=== PATIENT | male | born 1970 | race Caucasian/White ===

== ENCOUNTER → 2023-06-21 | Emergency (ER) | payer SELFPAY ==
[~2023-06-21] MED LIST: ENOXAPARIN 100 MG/ML SYR SQ ONE; NA CHLORIDE 0.9% 1,000 ML ONE
[2023-06-21 07:47] LABS: Absolute Lymphocytes (CBC) 2.1 K/uL (0.7-4.9); Hematocrit 41.1 % (39.6-49.0); Lymphocytes % 12.7 % (15.3-44.8); MCV 82.6 fL (80-100); MPV 8.3 fL (7.6-11.3); Platelets 412 thou/uL (152-406); RBC Red Blood Cell Count 4.97 M/uL (4.33-5.43)
[2023-06-21 08:04] LABS: Potassium 4.5 mEq/L (3.5-5.1)
[2023-06-21 08:12] LABS: Troponin High Sensitivity 294.7 pg/mL (<58.9)
--- NOTE | 2023-06-21 08:12 | RAD REPORT ---
EXAM DESCRIPTION: RAD - Chest Single View - 06/21/2023 8:07 am CLINICAL HISTORY: syncop Chest pain. COMPARISON: No comparisons FINDINGS: Portable technique limits examination quality. The lungs are grossly clear. The heart is normal in size. No displaced fractures. IMPRESSION: No acute intrathoracic process suspected.
--- NOTE | 2023-06-21 08:15 | RAD REPORT ---
EXAM DESCRIPTION: US - Extremity Venous Uni Ltd - 06/21/2023 8:09 am CLINICAL HISTORY: DVT eval Leg swelling and edema. COMPARISON: No comparisons FINDINGS: Right lower extremity venous system was interrogated with Doppler technique. Normal flow, compressibility and augmentation was noted. There is no DVT present. IMPRESSION: No evidence of right lower extremity deep venous thrombosis.
--- NOTE | 2023-06-21 08:47 | RAD REPORT ---
EXAM DESCRIPTION: CT - Chest For Pe Angio - 06/21/2023 8:37 am CLINICAL HISTORY: Chest pain. CHEST PAIN COMPARISON: No comparisons TECHNIQUE: CT angiogram of the pulmonary arteries was performed with MIP. All CT scans are performed using dose optimization technique as appropriate and may include automated exposure control or mA/KV adjustment according to patient size. FINDINGS: Large bilateral pulmonary emboli are present predominately in main and segmental branches. Moderate RV strain pattern. No acute aortic finding demonstrated. Mild linear subsegmental atelectasis is seen in both lung bases. The lungs are otherwise clear. No significant pericardial or pleural fluid. No concerning bony finding. IMPRESSION: Large, bilateral, main and segmental pulmonary emboli are present with significant RV st rain pattern. No acute lung findings.
[2023-06-21 09:01] LABS: Protime INR 1.3
--- NOTE | 2023-06-21 09:18 | ER ---
Nurse's Notes [facility] Name: Nicolas Guevara Age: 52 yrs Sex: Male : 1970 Arrival Date: 06/21/2023 Time: 06:53 Bed 14 Private MD: Diagnosis: Other pulmonary embolism with acute cor pulmonale Presentation: 06/21 07:01 Chief complaint: Patient states: right knee replacement on the 8th. yesterday new onset lg3 tachycardia and HTN that drops when i stand. im weak and dizzy. syncopal episode at registration. PT alert at time of triage. Coronavirus screen: Client denies travel out of the [place] in the last 14 days. At this time, the client does not indicate any symptoms associated with coronavirus-19. Ebola Screen: No symptoms or risks identified at this time. Initial Sepsis Screen: Does the patient meet any 2 criteria? No. Patient's initial sepsis screen is negative. Does the patient have a suspected source of infection? No. Patient's initial sepsis screen is negative. Risk Assessment: Do you want to hurt yourself or someone else? Patient reports no desire to harm self or others. Onset of symptoms was June 20, 2023. 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 Flu vaccine is not up to date. - Social history:: Smoking status: Patient denies any tobacco usage or history of. Patient uses alcohol, occasionally. Screenin:00 [facility] ED Fall Risk Assessment (Adult) History of falling in the last 3 months, rs5 including since admission No falls in past 3 months (0 pts) Confusion or Disorientation No (0 pts) Intoxicated or Sedated No (0 pts) Impaired Gait Yes (1 pt) Mobility Assist Device Used Yes (1 pt) Altered Elimination No (0 pt) Score/Fall Risk Level 0 - 2 = Low Risk Oriented to surroundings, Maintained a safe environment. Abuse screen: Denies threats or abuse. Nutritional screening: No deficits noted. Tuberculosis screening: No symptoms or risk factors identified. Assessment: 07:00 General: Appears in no apparent distress. uncomfortable, Behavior is calm, cooperative. rs5 Pain: Complains of pain in right knee Pain does not radiate. Pain currently is 2 out of 10 on a pain scale. Quality of pain is described as aching, Pain began Pt states "I had right knee surgery on 06/07/23. My knee aches every now and then but I don't really take any of the pain meds that the doctor prescribed" Is continuous, Aggravated by weight bearing. Neuro: Level of Consciousness is awake, alert, obeys commands, Oriented to person, place, time, situation. Cardiovascular: Heart tones S1 S2 present Patient's skin is warm and dry. Rhythm is sinus tachycardia. Respiratory: Airway is patent Respiratory effort is even, unlabored, Respiratory pattern is regular, symmetrical, Breath sounds are clear bilaterally. GI: Abdomen is round non-distended, Bowel sounds present X 4 quads. Abd is soft and non tender X 4 quads. Reports nausea when standing up from a sitting position intermittently. Pt denies nausea at this moment. : No signs and/or symptoms were reported regarding the genitourinary system. EENT: No signs and/or symptoms were reported regarding the EENT system. Derm: Skin is intact, Skin is pink, warm \\T\\ dry. 07:00 Musculoskeletal: Range of motion: limited in right knee. rs5 08:17 Reassessment: Patient and/or family updated on plan of care and expected duration. Pain rs5 level reassessed. Patient is alert, oriented x 3, equal unlabored respirations, skin warm/dry/pink. Patient denies pain at this time. 10:20 Reassessment: To bedside, transfer consent form signed by pt. rs5 10:20 Reassessment: Patient and/or family updated on plan of care and expected duration. Pain rs5 level reassessed. Patient is alert, oriented x 3, equal unlabored respirations, skin warm/dry/pink. 10:25 Reassessment: Report given to RN at [facility]. rs5 11:06 Reassessment: Patient and/or family updated on plan of care and expected duration. Pain rs5 level reassessed. Patient is alert, oriented x 3, equal unlabored respirations, skin warm/dry/pink. Patient denies pain at this time. Report given to EMS at bedside for transportation. Vital Signs: 07:01 BP 142 / 95; Pulse 103; Resp 19; Temp 97.5(O); Pulse Ox 98% on R/A; Weight 99.79 kg lg3 (R); Height 6 ft. 4 in. (R); 08:20 BP 119 / 84; Pulse 105; Resp 18; Pulse Ox 97% on R/A; rs5 09:40 BP 116 / 80; Pulse 99; Resp 18; Pulse Ox 98% on R/A; rs5 11:00 BP 120 / 87; Pulse 102; Resp 17; Pulse Ox 98% on R/A; rs5 07:01 Body Mass Index 26.78 (99.79 kg, 193.04 cm) lg3 ED Course: 06:55 Patient arrived in ED. im 07:00 Arm band placed on Patient placed in an exam room, on a stretcher. lg3 07:00 Patient has correct armband on for positive identification. Placed in gown. Bed in low rs5 position. Call light in reach. Side rails up X2. 07:05 Maximo Bender, RN is Primary Nurse. rs5 07:05 Triage completed. lg3 07:05 Phillip Mack MD is Attending Physician. ec2 07:15 Inserted saline lock: 20 gauge in right antecubital area, using aseptic technique. rs5 08:09 XRAY Chest (1 view) In Process Unspecified. EDMS 08:11 Extremity Venous Uni Ltd US In Process Unspecified. EDMS 08:12 Notified ED physician of a critical lab result(s). Troponin 294.7. ll1 08:38 CT Chest For PE Angio In Process Unspecified. EDMS 09:19 COVID-19 SARS RT PCR Sent. rs5 09:42 initiated transfer to [facility]. bd 11:04 pt accepted in transfer to [facility] ER by Dr aMrtines admin approval given by Kirk Callahan. 11:06 No provider procedures requiring assistance completed. Patient transferred, IV remains rs5 in place. Administered Medications: 07:40 Drug: NS 0.9% IV 1000 ml IV at 1 bolus Per protocol; 1000 mL bolus Route: IV; Rate: 1 rs5 bolus; Site: right antecubital; 08:00 Follow up: Response: No adverse reaction rs5 08:26 Drug: Enoxaparin Sub-Q 1 mg/kg Sub-Q once Route: Sub-Q; Site: left lower abdomen; rs5 09:00 Follow up: Response: No adverse reaction rs5 Medication: 11:06 VIS not applicable for this client. rs5 Outcome: 09:18 ER care complete, transfer ordered by ec2 11:06 Transferred by ground EMS to [facility], [place] 11:06 Condition: stable 11:06 Instructed on the need for transfer, Demonstrated understanding of instructions, 11:07 Patient left the ED. rs5 Signatures: Dispatcher [employer] EDMS Racquel Murdock Lacie RN RN lg3 Cleopatra Galindo RN RN ll1 Maximo Bender RN RN rs5 Mirela Pierre Edwin, MD MD ec2 Corrections: (The following items were deleted from the chart) 07:07 07:05 Allergies: No Known Allergies; lg3 lg3
--- NOTE | 2023-06-21 09:18 | EDPHYS ---
Physician Documentation [facility] Name: Nicolas Guevara Age: 52 yrs Sex: Male : 1970 Arrival Date: 06/21/2023 Time: 06:53 Bed 14 Private MD: ED Physician Phillip Mack HPI: 06/21 07:28 This 52 yrs old Male presents to ER via Wheelchair with complaints of Syncope.ec2 07:28 Patient arrives today for evaluation of syncopal episode. Patient reports that he ec2 recently had a right knee revision, states that he has been having periods of lightheadedness, states that predominantly this occurs when he goes from a sitting to a standing position. Patient reports no chest pain, no abdominal pain, no nausea, no vomiting, no diarrhea. Patient reports no fevers or chills.. 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 Flu vaccine is not up to date. - Social history:: Smoking status: Patient denies any tobacco usage or history of. Patient uses alcohol, occasionally. ROS: 07:28 Constitutional: as per hpi ec2 Exam: 07:28 Constitutional: GEN: NAD Head: atraumatic Eyes: EOMI Ears: External ears are ec2 normal. CV: Tachycardia LUNGS: no respiratory distress ABD: non-distended SKIN: Right lower extremity with trace swelling noted, no overlying erythema, no warmth, no discharge appreciated. MSK: no evidence of trauma NEURO: moves all extremities equally Vital Signs: 07:01 BP 142 / 95; Pulse 103; Resp 19; Temp 97.5(O); Pulse Ox 98% on R/A; Weight 99.79 kg lg3 (R); Height 6 ft. 4 in. (R); 08:20 BP 119 / 84; Pulse 105; Resp 18; Pulse Ox 97% on R/A; rs5 09:40 BP 116 / 80; Pulse 99; Resp 18; Pulse Ox 98% on R/A; rs5 11:00 BP 120 / 87; Pulse 102; Resp 17; Pulse Ox 98% on R/A; rs5 07:01 Body Mass Index 26.78 (99.79 kg, 193.04 cm) lg3 MDM: 07:06 Patient medically screened. ec2 07:28 Data reviewed: vital signs. ED course: Patient arrives today due to concern for periods ec2 of lightheadedness. Patient reports patient examination remarkable for well-appearing nontoxic individual is otherwise in no acute distress with a slight tachycardia noted. Will obtain lab work, EKG, chest x-ray, DVT ultrasound to further evaluate. Currently considering processes such as anemia, electrolyte disturbance, dehydration, or suspicion for DVT or PE.. 07:29 ED course: EKG independently reviewed and interpreted by me, shows sinus tachycardia, ec2 rate 101, no acute ST segment elevations, intervals otherwise nonconcerning.. 08:14 ED course: Metabolic profile shows appropriate electrolytes, diminished renal function ec2 with a creatinine of 1.46, CBC shows leukocytosis 16.2. Troponin is elevated at 294. Chest x-ray shows no acute intrathoracic process. Ultimately patient is a 52-year-old gentleman who comes in with recurrent episodes of lightheadedness and syncope, my concern is for NSTEMI given elevated troponin and lack of EKG changes, I will give the patient Lovenox injection therapeutically for NSTEMI, loss obtain CT scan of the chest given the patient's recent surgery to further evaluate for PE.. 08:29 ED course: DVT ultrasound negative for DVT.. ec2 09:05 ED course: CT scan of the chest shows large PEs along with RV strain.. ec2 09:10 ED course: I discussed case with hospitalist, will transfer given the degree of PE as ec2 well as right heart strain and elevated troponin, patient possibly may be a candidate for clot retrieval.. 10:34 ED course: I discussed case with the emergency physician Dr. Martines at [address], who agrees accept this patient.. 06/21 07:26 Order name: Basic Metabolic Panel; Complete Time: 08:13 ec2 06/21 07:26 Order name: CBC with Diff; Complete Time: 08:13 ec2 06/21 07:26 Order name: Troponin HS; Complete Time: 08:13 ec2 06/21 08:29 Order name: PT-INR; Complete Time: 09:04 ec2 12/20 08:29 Order name: Ptt, Activated; Complete Time: 09:04 ec2 06/21 09:12 Order name: COVID-19 SARS RT PCR; Complete Time: 10:12 ec2 06/21 07:26 Order name: XRAY Chest (1 view); Complete Time: 08:13 ec2 06/21 07:26 Order name: Extremity Venous Uni Ltd US; Complete Time: 08:29 ec2 06/21 08:15 Order name: CT Chest For PE Angio; Complete Time: 09:04 ec2 06/21 07:26 Order name: EKG; Complete Time: 07:27 ec2 06/21 07:26 Order name: Cardiac monitoring; Complete Time: 07:28 ec2 06/21 07:26 Order name: EKG - Nurse/Tech; Complete Time: 07:28 ec2 06/21 07:26 Order name: IV Saline Lock; Complete Time: 07:41 ec2 06/21 07:26 Order name: Labs collected and sent; Complete Time: 07:41 ec2 06/21 07:26 Order name: O2 Per Protocol; Complete Time: 07:28 ec2 06/21 07:26 Order name: O2 Sat Monitoring; Complete Time: 07:28 ec2 06/21 09:18 Order name: Oxygen; Complete Time: 09:22 ec2 Administered Medications: 07:40 Drug: NS 0.9% IV 1000 ml IV at 1 bolus Per protocol; 1000 mL bolus Route: IV; Rate: 1 rs5 bolus; Site: right antecubital; 08:00 Follow up: Response: No adverse reaction rs5 08:26 Drug: Enoxaparin Sub-Q 1 mg/kg Sub-Q once Route: Sub-Q; Site: left lower abdomen; rs5 09:00 Follow up: Response: No adverse reaction rs5 Disposition Summary: 06/21/23 09:18 Transfer Ordered Notes: Reason: Higher level of care ec2 Condition: Stable ec2 Problem: new ec2 Symptoms: are unchanged ec2 Transfer Location: [facility](06/21/23 10:20) ec2 Accepting Physician: transferring doc(06/21/23 11:07) rs5 Diagnosis - Other pulmonary embolism with acute cor pulmonale ec2 Forms: - Medication Reconciliation Form ec2 - SBAR form ec2 Critical care time excluding procedures: 08:15 Critical care time: Bedside Care: 30 minutes. Total time: 30 minutes ec2 Signatures: Dispatcher [employer] Vanessa Page RN RN lg3 Maximo Bender RN RN rs5 Phillip Mack MD MD ec2 Corrections: (The following items were deleted from the chart) 07:07 07:05 Allergies: No Known Allergies; lg3 lg3 10:20 09:18 transferring doc ec2 ec2 10:20 09:18 Other Acute Care Facility ec2 ec2 10:46 10:34 ED course: I discussed case with the emergency physician at [facility], ec2 who agrees accept this patient.. ec2 11:07 10:20 transferring doc ec2 rs5
[2023-06-21 11:20] VITALS: TEMP 97.5
[2023-06-21 11:32] VITALS: O2SAT 98
[2023-06-21 11:37] VITALS: BP 120/87
--- NOTE | 2023-06-21 12:49 | EKG ---
Test Date: 2023-06-21 Test Time: 07:07:32 Decaler: TOBI MEASUREMENT RESULTS: Intervals: Rate: 101 SD: 186 QRSD: 84 QT: 362 QTc: 469 Rosie: P: 60 SD: 186 QRS: 40 T: 68 INTERPRETIVE STATEMENTS: Sinus tachycardia Possible Left atrial enlargement Nonspecific T wave abnormality Abnormal ECG No previous ECG available for comparison Electronically Signed On 06-21-23 12:48:42 STRINGING MACHINE OPERATOR by Jean-Claude Ospina
== END ==
LOC: ER 06:53
DX: I26.09 Other pulmonary embolism with acute cor pulmonale (principal)
CPT/HCPCS: 36415; 71045; 71275; 80048; 84484; 85025; 85610; 85730; 87635; 93005; 93971; 96372; 99285; J1650; J7030; Q9967